=== PATIENT | male | born 1935 | race Caucasian/White ===

== ENCOUNTER 2017-02-26 15:00 | Observation (INO) ==
[2017-02-26] MEDS: *HR* HYDROcodone/Acet 5/325 mg TABLET PO PRN (18:56)
[2017-02-26] MEDS: Famotidine 20 MG TABLET PO SCH (20:32)
[2017-02-27 05:39] LABS: Basophils # 0.1 K/mcL (0.0-0.2); Basophils % 1.1 %; Eosinophils # 0.7 K/mcL (0.0-0.6); Eosinophils % 7.8 %; Hematocrit 34.4 % (37.5-50.1); Hemoglobin 11.5 g/dL (12.9-16.9); Immature Granulocytes % 0.4 % (0-4); Lymphocytes # 2.3 K/mcL (0.6-4.6); Lymphocytes % 25.4 %; Mean Corpuscular HGB Conc 33.4 g/dL (31.6-35.5); Mean Corpuscular Hemoglobin 28.3 pg (28.0-33.3); Mean Corpuscular Volume 84.5 fL (83.0-100.0); Monocytes % 10.8 %; Neutrophils # 4.9 K/mcL (1.6-8.9); Platelet Count 237 K/mcL (140-400); Red Blood Count 4.07 M/mcL (4.19-5.50); Red Cell Distribution Width 14.5 % (11.5-14.5); Segmented Neutrophils % 54.5 %
[2017-02-27 05:50] LABS: Calcium 8.9 mg/dL (8.6-10.8); Potassium 4.4 mEq/L (3.5-4.5)
[2017-02-27] MEDS: *HR* GlipiZIDE 5 MG TABLET PO SCH (08:54)
[2017-02-27] MEDS: Furosemide 40 MG TABLET PO SCH (08:54)
[2017-02-27] MEDS: *HR* Enoxaparin 40 MG/0.4 ML SYRINGE SQ SCH (08:55)
[2017-02-27] MEDS: *HR* HYDROcodone/Acet 5/325 mg TABLET PO PRN ×3 (08:55→21:26)
--- NOTE | 2017-02-27 14:14 | Internal Med History&Physical ---
Date of Encounter: 02/27/17 Time of Encounter: 14:12 Assessment and Plan (1) Venous stasis ulcer of leg without varicose veins Current visit: No Status: Acute Patient is undergoing wound care IV antibiotics and dressing. He will continue to receive antibiotics until the wound has improved. Internal Medicine - H&P: HPI Admitted From: Direct Admit Plans for Post Hospital Care: Home History of present illness: Mr. Dunne is a 81 year old male Past Med Surg Social Fam HX - Past Medical History Medical history: COPD, dementia, diabetes, hypertension, venous stasis Psychiatric history: PTSD - Past Surgical History Surgical History: cholecystectomy - Social History Smoking Status: Former smoker Smokeless Tobacco Status: No Alcohol use: none Drug use: none Internal Medicine - H&P: Meds Furosemide [Lasix] 40 mg PO DAILY 03/28/16 [History] glipiZIDE [Glipizide] 10 mg PO DAILY 03/28/16 [History] Mineral Oil/Petrolatum,White [Hydrocerin Cream] 454 gm TP PRN PRN 06/25/16 [ History] Ranitidine HCl [Heartburn Relief] 150 mg PO HS 06/25/16 [History] Allergies No Known Allergies Allergy (Verified 03/28/16 16:00) All Systems PM: A 10-system review of systems was performed and is negative for pertinent findings except as documented above in the HPI. - Constitutional Vitals: Temp Pulse Resp BP Pulse Ox 98 F 71 16 130/84 95 02/27/17 11:57 02/27/17 11:57 02/27/17 11:57 02/27/17 11:57 02/27/17 11:57 - Head Head exam: Present: atraumatic, normocephalic - Neck Neck exam general surgery: Present: supple, trachea midline. Absent: lymphadenopathy - Respiratory Respiratory exam: Present: CTAB. Absent: accessory muscle use, rales, rhonchi, wheezes - Cardiovascular Cardiovascular exam: Present: RRR, +S1, +S2. Absent: diastolic murmur, gallop, rubs, systolic murmur Internal Med - H&P Results - Labs CBC & Chem 7: 02/27/17 05:25 02/27/17 05:25 Labs: Short CBC 02/27/17 Range/Units 05:25 WBC 9.0 (4.3-11.1) K/mcL Hgb 11.5 L (12.9-16.9) g/dL Hct 34.4 L (37.5-50.1) % Plt Count 237 (140-400) K/mcL Neutrophils # 4.9 (1.6-8.9) K/mcL BMP 02/27/17 05:25 Sodium 139 Potassium 4.4 Chloride 106 Carbon Dioxide 23 BUN 21 Creatinine 1.44 H Glucose 143 H Calcium 8.9 Lab is stable
[2017-02-27] MEDS ORDERED: *HR* LORazepam 0.5 MG TABLET PO PRN (19:11)
[2017-02-27] MEDS: Famotidine 20 MG TABLET PO SCH (21:24)
[2017-02-27] MEDS: *HR* LORazepam 0.5 MG TABLET PO SCH (21:25)
[2017-02-28 09:38] LABS: Hemoglobin A1C 6.9 %
[2017-02-28] MEDS: *HR* GlipiZIDE 5 MG TABLET PO SCH (09:43)
[2017-02-28] MEDS: Furosemide 40 MG TABLET PO SCH (09:43)
[2017-02-28] MEDS: *HR* Enoxaparin 40 MG/0.4 ML SYRINGE SQ SCH (09:45)
[2017-02-28] MEDS: *HR* LORazepam 0.5 MG TABLET PO SCH ×3 (09:53→21:25)
--- NOTE | 2017-02-28 13:45 | Internal Med Progress Note ---
Date of Encounter: 02/28/17 Time of Encounter: 13:43 - Assessment and plan (1) Venous stasis ulcer of leg without varicose veins Current Visit: No Status: Acute Assessment and plan: Much improved less drainage to Green is resolved and serous drainage is minimal. - Time Spent With Patient less than 15 minutes - Subjective Interval history: Well Mr. Dunne had dressing changed today and it is improved considerably. It is still very erythematous and there is some serous drainage but the Green's : Overall secretions are less need to continue antibiotics for a few more days and then assess. - Constitutional Vitals: Temp Pulse Resp BP Pulse Ox 98.2 F 66 8 132/72 94 02/28/17 11:47 02/28/17 11:47 02/28/17 11:47 02/28/17 11:47 02/28/17 11:47 - Head Head exam: Present: atraumatic, normal inspection, normocephalic - Respiratory Respiratory exam: Present: CTAB. Absent: accessory muscle use, rales, rhonchi, wheezes - Cardiovascular Cardiovascular exam: Present: RRR, +S1, +S2. Absent: diastolic murmur, gallop, rubs, systolic murmur Internal Medicine: Result - Labs CBC & Chem 7: 02/27/17 05:25 02/27/17 05:25 Labs: Lab is stable Consult Discharge Plan - Plan [facility]errals: [facility] [Primary Care Provider] -
[2017-02-28] MEDS: *HR* HYDROcodone/Acet 5/325 mg TABLET PO PRN ×2 (14:51→21:23)
[2017-02-28] MEDS: Famotidine 20 MG TABLET PO SCH (21:21)
[2017-03-01] MEDS: *HR* LORazepam 0.5 MG TABLET PO SCH (08:28)
[2017-03-01] MEDS: Furosemide 40 MG TABLET PO SCH (08:29)
[2017-03-01] MEDS: *HR* GlipiZIDE 5 MG TABLET PO SCH (08:29)
[2017-03-01] MEDS: *HR* Enoxaparin 40 MG/0.4 ML SYRINGE SQ SCH (08:29)
[2017-03-01] MEDS ORDERED: Famotidine 20 MG TABLET PO ONE (15:14)
[2017-03-01] MEDS: *HR* HYDROcodone/Acet 5/325 mg TABLET PO PRN (18:27)
[2017-03-01] MEDS: Famotidine 20 MG TABLET PO SCH (21:57)
[2017-03-02] MEDS: *HR* HYDROcodone/Acet 5/325 mg TABLET PO PRN ×3 (00:08→22:07)
[2017-03-02] MEDS: Furosemide 40 MG TABLET PO SCH (09:27)
[2017-03-02] MEDS: *HR* GlipiZIDE 5 MG TABLET PO SCH (09:27)
[2017-03-02] MEDS: Famotidine 20 MG TABLET PO SCH ×2 (09:27→22:07)
[2017-03-02] MEDS: *HR* Enoxaparin 40 MG/0.4 ML SYRINGE SQ SCH (09:28)
--- NOTE | 2017-03-02 12:24 | Internal Med Progress Note ---
Date of Encounter: 03/02/17 Time of Encounter: 12:23 - Assessment and plan (1) Venous stasis ulcer of leg without varicose veins Current Visit: No Status: Acute Assessment and plan: On IV antibiotics. Much improved less drainage is resolved and serous drainage is minimal. - Time Spent With Patient less than 15 minutes - Subjective Interval history: No voiced complaint today. Feeling better. Willing to stay for 2 more days for IV antibiotics. No shortness of breath. No fever. - Constitutional Vitals: Temp Pulse Resp BP Pulse Ox 98.1 F 72 16 117/83 93 03/02/17 08:00 03/02/17 08:00 03/02/17 08:00 03/02/17 08:00 03/02/17 08:00 General appearance: Present: A&O X 3, pleasant, no acute distress - Respiratory Respiratory exam: Present: CTAB. Absent: accessory muscle use, rales, rhonchi, wheezes - Cardiovascular Cardiovascular exam: Present: RRR, +S1, +S2. Absent: diastolic murmur, gallop, rubs, systolic murmur - GI/Abdominal GI/Abdominal exam: Present: normal bowel sounds, soft, no peritoneal signs. Absent: distended, tenderness Internal Medicine: Result - Labs CBC & Chem 7: 02/27/17 05:25 02/27/17 05:25 - VTE Documentation of Mechanical Device: Graduated compression elastic hosiery Consult Discharge Plan - Plan Referrals: [facility] [Primary Care Provider] -
[2017-03-03] MEDS: Famotidine 20 MG TABLET PO SCH (09:50)
[2017-03-03] MEDS: *HR* GlipiZIDE 5 MG TABLET PO SCH (09:50)
[2017-03-03] MEDS: Furosemide 40 MG TABLET PO SCH (09:50)
[2017-03-03] MEDS: *HR* Enoxaparin 40 MG/0.4 ML SYRINGE SQ SCH (09:50)
[2017-03-03 12:44] VITALS: BP 156/74
--- NOTE | 2017-03-03 14:15 | Discharge Summary ---
Date of Encounter: 03/03/17 Time of Encounter: 14:12 - Discharge Diagnosis (1) Venous stasis ulcer of leg without varicose veins Priority: Primary Status: Acute - Discharge Medications Prescriptions: Cephalexin [Keflex] 500 mg PO QID #40 capsule Sulfamethoxazole/Trimeth DS [Bactrim DS] 1 each PO BID #20 tablet Home Medications: Furosemide [Lasix] 40 mg PO DAILY 03/28/16 [History] glipiZIDE [Glipizide] 10 mg PO DAILY 03/28/16 [History] Mineral Oil/Petrolatum,White [Hydrocerin Cream] 454 gm TP PRN PRN 06/25/16 [ History] Ranitidine HCl [Heartburn Relief] 150 mg PO HS 06/25/16 [History] Cephalexin [Keflex] 500 mg PO QID #40 capsule 03/03/17 [Rx] Sulfamethoxazole/Trimeth DS [Bactrim DS] 1 each PO BID #20 tablet 03/03/17 [Rx] Allergies/Adverse Reactions: Allergies No Known Allergies Allergy (Verified 03/28/16 16:00) Date of admission: 02/26/17 15:51 Primary care physician: [facility] Discharging clinician: Farzana Moses Anticipated date of discharge: 03/03/17 - Patient Status Disposition: Home, Self-Care Condition: Fair Functional capacity at discharge: independent ambulation Overall status at discharge: patient is not back to baseline - Discharge Instructions Follow Up With: [facility] [Primary Care Provider] - - Diet and Activity Activity: ambulate only with your walker Diet: advance to your usual diet Hospital course: Mr. Dunne is a 81 year old male who was admitted for chronic lower leg ulceration. His wound got infected requiring IV antibiotics. When he was admitted to the hospital, he was adamant about leaving AGAINST MEDICAL ADVICE. He did not want to stay. Every day we talked him into staying and other day. Today he does not want to stay any longer. He does not like the bed of this hospital. He states that it is uncomfortable. I spent a lot of time explaining to him the need for IV antibiotics for his pseudomonas infection. Again he refused to stay. He did agree to take the prescription for Bactrim and Keflex. I told him that pseudomonas may not be covered. Again he wants to leave. He seems to be fully aware of all the risk and possible complications. I cannot talk him into staying. He did agree to follow the wound care clinic and to return to the ED or to Hospital at discharge his mind about hospitalization. Time spent discussing smoking cessation with patient: more than 10 minutes - Time Spent with Patient Total time spent providing and/or coordinating discharge services: Less than 30 minutes - Constitutional Vitals: Temp Pulse Resp BP Pulse Ox 97.9 F 54 14 156/74 100 03/03/17 12:00 03/03/17 12:00 03/03/17 12:00 03/03/17 12:00 03/03/17 08:00 General appearance: Present: A&O X 3, pleasant, no acute distress - Respiratory Respiratory exam: Present: CTAB. Absent: accessory muscle use, rales, rhonchi, wheezes - Cardiovascular Cardiovascular exam: Present: RRR, +S1, +S2. Absent: diastolic murmur, gallop, rubs, systolic murmur - GI/Abdominal GI/Abdominal exam: Present: normal bowel sounds, soft, no peritoneal signs. Absent: distended, tenderness - VTE Documentation of Mechanical Device: Graduated compression elastic hosiery
== END 2017-03-03 15:50 | disposition left against medical advice (07) ==
LOC: INPGRE
PROVIDERS: ADMIT Internal Medicine; ATTEND Internal Medicine